=== PATIENT | female | born 1990 | race Caucasian/White ===

== ENCOUNTER 2023-04-04 20:04 | Emergency (ER) | payer OTHER, SELFPAY ==
[2023-04-04 20:12] VITALS: BP 116/66; PULSE 80; RESP 18; TEMP 36.5; O2SAT 99
--- NOTE | 2023-04-04 20:27 | ED_ITS ---
HPI - Dental/Oral General Chief complaint: Dental/Oral Stated complaint: SWOLLEN FACE, WISDOM TOOTH Time Seen by Provider: 04/04/23 20:06 Source: patient Mode of arrival: walk-in Limitations: no limitations History of Present Illness HPI Narrative: patient is a 32-year-old female who presents to the emergency department for the evaluation of pain in tooth #32. Patient states for the last three days she has had pain to the area radiating to the right side of the face. She feels as though her cheek is swollen, there has been no drainage. She denies any fevers, vomiting. She is not concerned for . She's been using Tylenol and ibuprofen without improvement. She has an upcoming dentist appointment this week. Her is also being evaluated for dental pain for the last two days. Related Data Home Medications Medication Instructions Recorded Confirmed atorvastatin 20 mg tablet mg 04/04/23 Previous Rx's Medication Instructions Recorded clindamycin HCl 150 mg capsule 300 mg PO Q6H 10 days #80 caps 04/04/23 ketorolac 10 mg tablet 10 mg PO TID PRN pain #10 tabs 04/04/23 Allergies Allergy/AdvReac Type Severity Reaction Status Date / Time Penicillins Allergy Mild Rash Verified 04/04/23 20:33 Review of Systems 2 ROS Constitutional Denies: fever or chills Ears, nose, mouth, and throat Denies: throat pain Cardiovascular Denies: chest pain Respiratory Denies: shortness of breath or cough Gastrointestinal Denies: nausea or vomiting Musculoskeletal Denies: back pain Integumentary/Breast Denies: rash Neurological Reports: headache PFSH PFSH Social History Smoking status: Current every day smoker Exam Narrative Exam Narrative: Gen.: Awake, alert, in no distress Head: Normocephalic, atraumatic ENT: Moist mucous membranes, bilateral tympanic membranes clear, tooth #32 is partially avulsed with root exposure. No visible abscess. No trismus or drooling. No redness or swelling under the tongue. Airway widely open and patent Respiratory: No respiratory distress Extremities: Moves extremities equally Psych: Normal mood and affect Neuro: No focal neuro deficit Skin: Warm, dry, intact Constitutional Vital Signs, click to edit/add: Last Vital Signs Temp 97.7 F 04/04/23 20:12 Pulse 80 04/04/23 20:12 Resp 18 04/04/23 20:12 BP 116/66 04/04/23 20:12 Pulse Ox 99 04/04/23 20:12 O2 Del Method Room Air 04/04/23 20:12 Course Vital Signs Vital signs: Vital Signs Temperature 97.7 F 04/04/23 20:12 Pulse Rate 80 04/04/23 20:12 Respiratory Rate 18 04/04/23 20:12 Blood Pressure 116/66 04/04/23 20:12 Pulse Oximetry 99 04/04/23 20:12 Oxygen Delivery Method Room Air 04/04/23 20:12 Temperature 97.7 F 04/04/23 20:12 Pulse Rate 80 04/04/23 20:12 Respiratory Rate 18 04/04/23 20:12 Blood Pressure 116/66 04/04/23 20:12 Pulse Oximetry 99 04/04/23 20:12 Oxygen Delivery Method Room Air 04/04/23 20:12 MDM - Dental/Oral MDM Narrative Medical decision making narrative: patient treated with topical analgesia, clindamycin and NSAIDs. Follow-up with dentist as scheduled and return to Emergency Room if symptoms change or worsen. No visible dental abscess at this time and the patient has no appreciable mandibular maxillary swelling. Vital signs are normal at discharge. Medical Records Attestation: I reviewed the patient's medical records. Discharge Plan Discharge Chief Complaint: Dental/Oral Clinical Impression: Dental caries, Toothache Patient Disposition: Home, Self-Care Time of Disposition Decision: 20:26 Condition: Good Prescriptions / Home Meds: New clindamycin HCl 150 mg capsule 300 mg PO Q6H 10 Days Qty: 80 0RF ketorolac 10 mg tablet 10 mg PO TID PRN (Reason: pain) Qty: 10 0RF No Action atorvastatin 20 mg tablet Instructions: Toothache (ED) Additional Instructions: Follow up with dental as scheduled Stand Alone Forms: Portal Instructions Referrals: VIJAYA ARELLANO APRN [Primary Care Provider] - 1 week Discharge Date/Time: 04/04/23 20:55
[2023-04-04] MEDS: BENZOCAINE 30 ML, lidocaine HCL 15 ML MM (20:36)
== END 2023-04-04 20:55 | disposition home or self-care (01) ==
PROVIDERS: Emergency Provider Internal Medicine; PCP Nurse Practitioner Primary Care
DX: K02.9 Dental caries, unspecified (principal); K08.89 Other specified disorders of teeth and supporting structures; F17.210 Nicotine dependence, cigarettes, uncomplicated
CPT/HCPCS: 99284